=== PATIENT | male | born 1985 | race African-American/Black ===

== ENCOUNTER 2018-08-05 14:42 | Emergency (ER) | payer MEDICAID ==
[~2018-08-05] VITALS: Ht 180.3 cm; Wt 73.0 kg
[2018-08-05 18:31] LABS: BASOPHILS % 0.8 % (0.0-2.0); EOSINOPHILS % 0.3 % (0.0-5.0); HEMATOCRIT. 39.9 % (42.0-52.0); HEMOGLOBIN. 13.4 g/dL (14.0-18.0); MEAN CORPUSCULAR HEMOGLOBIN 30.2 pg (28.0-32.0); MEAN CORPUSCULAR VOLUME 90.1 fL (80.0-94.0); MEAN PLATELET VOLUME 9.7 fl (7.4-10.4); MONOCYTES % 5.4 % (2.0-8.0); NEUTROPHILS % 64.5 % (40.0-76.0); PLATELET 277 x1000/uL (130-400); RED BLOOD CELL COUNT 4.43 mill/uL (4.7-6.1); RED CELL DISTRIBUTION WIDTH 14.7 % (11.6-14.6)
[2018-08-05 19:23] VITALS: BP 127/85
== END 2018-08-05 19:25 | disposition home or self-care (01) ==
LOC: ER 14:42
DX: K64.4 Residual hemorrhoidal skin tags (principal); K62.5 Hemorrhage of anus and rectum
CPT/HCPCS: 36415; 99283